=== PATIENT | female | born 1995 | race Caucasian/White ===

== ENCOUNTER 2024-08-20 06:46 | Inpatient (IN) | payer BC ==
[2024-08-20] MEDS ORDERED: Sodium Chloride 0.9% 2.5 ML Syringe FLUSH PRN (07:55)
[2024-08-20] MEDS ORDERED: Tranexamic Acid IN NACL,ISO-OS 1,000 MG in Premix Bag 1 BAG IV PRN (07:55)
[2024-08-20] MEDS ORDERED: Sodium Chloride 0.9% 10 ML Syringe FLUSH PRN (07:55)
[2024-08-20] MEDS ORDERED: Lidocaine 1% 50 ML MDV INJECT PRN (07:55)
[2024-08-20] MEDS ORDERED: Water For Irrigation,Sterile 1,000 ML Container IRR PRN (07:55)
[2024-08-20] MEDS ORDERED: Carboprost Tromethamine 250 MCG/1 mL Vial IM PRN (07:55)
[2024-08-20] MEDS ORDERED: Sodium Chloride 0.9% 20 ML SDV IV PRN (07:55)
[2024-08-20] MEDS ORDERED: Butorphanol 2 MG/ML SDV IVPUSH PRN (07:55)
[2024-08-20] MEDS ORDERED: Misoprostol 200 MCG Tab PO PRN (07:55)
[2024-08-20] MEDS ORDERED: Terbutaline 1 MG/ML SDV SUBCUT PRN (08:29)
[2024-08-20] MEDS: Oxytocin/0.9 % Sodium Chloride 30 UNIT/500 ML BAG IV SCH (10:29)
[2024-08-20] MEDS: Lactated Ringers 1,000 ML IV SCH (10:29)
[2024-08-20 11:32] LABS: HEMATOCRIT 40.7 % (37.0-47.0); HEMOGLOBIN 13.6 g/dL (12.0-16.0); MEAN CORPUSCULAR HEMOGLOBIN 31.4 pg (28.0-32.0); MEAN CORPUSCULAR HGB CONC 33.4 g/dL (32.0-36.0); MEAN PLATELET VOLUME 10.7 fL (9.4-12.3); PLATELET COUNT,PLT 206 K/uL (150-400); RED BLOOD CELL COUNT 4.33 M/uL (4.10-5.30); WHITE BLOOD CELL COUNT,WBC 9.52 K/uL (3.9-11.3)
[2024-08-20] MEDS: Ropivacaine HCl/PF 400 MG in Premix Bag 1 BAG EPIDUR SCH (14:10)
[2024-08-20] MEDS ORDERED: Phenylephrine HCl In 0.9% NaCl 1 MG/10 ML Syringe IVPUSH PRN (14:17)
[2024-08-20] MEDS ORDERED: ePHEDrine 50 MG/ML SDV IM PRN (14:17)
[2024-08-20] MEDS ORDERED: ePHEDrine 50 MG/ML SDV IVPUSH PRN (14:17)
[2024-08-20] MEDS ORDERED: dexmedeTOMIDine HCl 200 MCG/2 ML SDV EPIDUR SCH (14:30)
[2024-08-20] MEDS: Ropivacaine HCl/PF 200 ML ONE (15:14)
[2024-08-20] MEDS: Phenylephrine HCl In 0.9% NaCl 1 MG/10 ML Syringe ONE (15:14)
[2024-08-20] MEDS: Bupivacaine 0.5% 10 ML SDV ONE (15:14)
[2024-08-20] MEDS: Bupivacaine 0.5% 10 ML SDV INJECT ONE (15:15)
[2024-08-20] MEDS: Ondansetron 4 MG/2 ML SDV IVPUSH PRN (17:08)
[2024-08-21] MEDS ORDERED: Lidocaine 2% 5 ML SDV ONE (07:04)
[2024-08-21] MEDS ORDERED: Bupivacaine 0.5% 10 ML SDV ONE (07:04)
[2024-08-21] MEDS ORDERED: Ondansetron 4 MG/2 ML SDV ONE (07:27)
[2024-08-21] MEDS: Methylergonovine 0.2 MG/1 ML Amp IM PRN (07:35)
[2024-08-21] MEDS: Oxytocin/0.9 % Sodium Chloride 30 UNIT/500 ML BAG IV SCH (08:00)
[2024-08-21] MEDS ORDERED: oxyCODONE 5 MG Tab PO PRN (09:28)
[2024-08-21] MEDS ORDERED: Docusate Sodium 100 MG Cap PO PRN ×2 (09:28→21:00)
[2024-08-21] MEDS ORDERED: Acetaminophen 500 MG Tab PO PRN (09:28)
[2024-08-21] MEDS ORDERED: Lanolin 100% Cream 7 GM Tube TOP PRN (09:28)
[2024-08-21] MEDS: Witch Hazel Medicated Pads 40/Jar TOP PRN (10:11)
[2024-08-21] MEDS: Benzocaine/Menthol 20%-0.5% Spray 78 GM Cannister TOP PRN (10:12)
[2024-08-21] MEDS: Ibuprofen 800 MG Tab PO PRN (10:12)
[2024-08-21] MEDS: Docusate Sodium 100 MG Cap PO SCH (20:34)
[2024-08-22 07:00] LABS: HEMATOCRIT 27.7 % (37.0-47.0)
== END 2024-08-22 14:15 | disposition home or self-care (01) | DRG 542 ==
LOC: MW.OBCHECK 06:46 → MW.OB 06:47 → MW.OBCHECK 07:55 → OBSVTOIN 07:55 → MW.OB 07:55
PROVIDERS: ADMIT Obstetrics & Gynecology; ATTEND Obstetrics & Gynecology
PROC: 0DQR0ZZ Repair Anal Sphincter, Open Approach (ICD-10-PCS; principal; 2024-08-21)
PROC: 10D07Z3 Extraction of Products of Conception, Low Forceps, Via Natural or Artificial Opening (ICD-10-PCS; 2024-08-21)
PROC: 3E0P7VZ Introduction of Hormone into Female Reproductive, Via Natural or Artificial Opening (ICD-10-PCS; 2024-08-21)
PROC: 10H07YZ Insertion of Other Device into Products of Conception, Via Natural or Artificial Opening (ICD-10-PCS; 2024-08-21)
DX: O42.02 Full-term premature rupture of membranes, onset of labor within 24 hours of rupture (principal); O70.22 Third degree perineal laceration during delivery, IIIb; O77.0 Labor and delivery complicated by meconium in amniotic fluid; O90.81 Anemia of the puerperium; D50.0 Iron deficiency anemia secondary to blood loss (chronic); O99.214 Obesity complicating childbirth; Z37.0 Single live birth; Z3A.39 39 weeks gestation of pregnancy
CPT/HCPCS: 36415; 59025; 59409; 84112; 85014; 85018; 85027; 86592; 86850; 86900; 86901; A9270-GY; J0665; J2210; J2371; J2405; J2590; J2795; J3490; J7120